=== PATIENT | male | born 1985 | race Caucasian/White ===

== ENCOUNTER 2021-08-06 05:38 | Emergency (ER) | payer OTHER, SELFPAY ==
--- NOTE | 2021-08-06 05:41 | ECG_ITS ---
Measurements Intervals [place] Rate: 112 P: 55 IN: 124 QRS: 54 QRSD: 87 T: 5 QT: 317 QTc: 433 Interpretive Statements SINUS TACHYCARDIA NONSPECIFIC T-WAVE ABNORMALITY- INFERIOR LEADS ABNORMAL ECG Electronically Signed On 08-06-2021 6:37:55 CHEMICAL EDUCATOR by Checo Abraham D.O.
--- NOTE | 2021-08-06 05:47 | PC.NURSE ---
sitter at side, suction & cords not removed, until patient stable from withdrawls
[2021-08-06 05:56] VITALS: BP 140/88; PULSE 100; RESP 20; TEMP 37; O2SAT 95
[2021-08-06] MEDS: SODIUM CHLORIDE 0.9% IV 1,000 ML 999 ML IV CONT (06:07)
[2021-08-06 06:08] LABS: Basophils Absolute Auto 0.02 K/mm3 (0.00-0.10); Basophils Percent Auto 0.2 % (0.0-1.0); Eosinophils Absolute Auto 0.15 K/mm3 (0.02-0.50); Eosinophils Percent Auto 1.4 % (1.0-6.0); Hematocrit 51.7 % (40.0-54.0); Hemoglobin 17.6 g/dL (14.0-18.0); Immature Granulocyte Absolute 0.04 K/mm3 (0.00-0.00); Immature Granulocyte Percent A 0.4 % (0.0-0.0); Lymphocytes Absolute Auto 3.82 K/mm3 (1.10-4.50); Lymphocytes Percent Auto 36.5 % (18.0-42.0); Mean Corpuscular Hemoglobin 30.8 pg (27.0-31.0); Mean Corpuscular Volume 90.4 fL (78.0-102.0); Mean Platelet Volume 9.8 fl (8.7-11.0); Monocytes Percent Auto 5.7 % (2.0-11.0); Neutrophils Absolute Auto 5.9 K/mm3 (1.7-7.2); Neutrophils Percent Auto 55.8 % (50.0-70.0); Platelet Count Result 283 K/mm3 (150-420); Red Blood Count 5.72 M/mm3 (4.70-6.10); Red Cell Distribution Width 12.5 % (11.6-14.4); White Blood Count 10.5 K/mm3 (4.8-10.8)
[2021-08-06 06:20] LABS: Amphetamine Screen Urine Negative (Negative); Barbiturate Screen Urine Negative (Negative); Benzodiazepines Screen Urine Negative (Negative); Cannabinoid Screen Urine Negative (Negative); Cocaine Screen Urine Negative (Negative); Methadone Screen Urine Negative (Negative); Opiate Screen Urine Negative (Negative); Phencyclidine Screen Urine Negative (Negative)
[2021-08-06 06:27] LABS: Alanine Aminotransferase 40 U/L (16-63); Albumin Level 4.6 g/dL (3.4-5.0); Alkaline Phosphatase 82 U/L (46-116); Anion Gap 12 mmol/L (8-16); Aspartate Amino Transferase 16 U/L (15-37); Bilirubin,Total 0.1 mg/dL (0.00-1.00); Blood Urea Nitrogen 11 mg/dL (7-18); Calcium 8.8 mg/dL (8.5-10.1); Carbon Dioxide 25 mmol/L (21-32); Chloride 109 mmol/L (98-108); Estimated CRCL calculation 95 ml/min; Estimated Glomerular Filt Rate > 60; Glucose 103 mg/dL (70-99); Osmolality Calculated 301 mOsm/kg (285-295); Sodium 146 mmol/L (136-145); Total Protein 8.2 g/dL (6.4-8.2)
[2021-08-06 06:29] LABS: Acetaminophen < 2 ug/mL (10-30); Salicylate 4.2 mg/dL (2.8-20.0)
[2021-08-06 06:30] LABS: Ethanol > 300 mg/dL (0-6)
[2021-08-06 06:41] LABS: SARS-CoV-2 RNA PCR Negative (Negative)
--- NOTE | 2021-08-06 07:09 | ED.GENADULT ---
HPI - General Adult General Chief complaint: Unspecified <Brayan Jesus MD - Last Filed: 08/08/21 08:40> Stated complaint: Suicidal <Brayan Jesus MD - Last Filed: 08/08/21 08:40> Time Seen by Provider: 08/06/21 05:40 <Brayan Jesus MD - Last Filed: 08/08/21 08:40> Source: patient, EMS and RN notes reviewed <Brayan Jesus MD - Last Filed: 08/08/21 08:40> Mode of arrival: EMS <Brayan Jesus MD - Last Filed: 08/08/21 08:40> Limitations: no limitations <Brayan Jesus MD - Last Filed: 08/08/21 08:40> History of Present Illness complaint: pt was drinking etoh and slashed his wrist superficially because he was mian <Brayan Jesus MD - Last Filed: 08/08/21 08:40> Onset (ago): hour(s) (1) <Brayan Jesus MD - Last Filed: 08/08/21 08:40> Location: upper extremity <Brayan Jesus MD - Last Filed: 08/08/21 08:40> Radiation: non-radiation <Brayan Jesus MD - Last Filed: 08/08/21 08:40> Severity: mild <Brayan Jesus MD - Last Filed: 08/08/21 08:40> Severity scale (1-10): 2 <Brayan Jesus MD - Last Filed: 08/08/21 08:40> Quality: dull <Brayan Jesus MD - Last Filed: 08/08/21 08:40> Pain Consistency: other (pt was pain-free in the ED.) <Brayan Jesus MD - Last Filed: 08/08/21 08:40> Relieving factors: none <Brayan Jesus MD - Last Filed: 08/08/21 08:40> Exacerbating factors: none <Brayan Jesus MD - Last Filed: 08/08/21 08:40> Associated symptoms: other (etoh intoxication) <Brayan Jesus MD - Last Filed: 08/08/21 08:40> Treatments prior to arrival: other (see EMS notes.) <Brayan Jesus MD - Last Filed: 08/08/21 08:40> Related Data Home medications: Home Medications Medication Instructions Recorded Confirmed No Home Medications 08/06/21 08/06/21 <Brayan Jesus MD - Last Filed: 08/08/21 08:40> Allergies/adverse reactions: Allergies Allergy/AdvReac Type Severity Reaction Status Date / Time No Known Allergies Allergy Verified 08/06/21 05:59 <Brayan Jesus MD - Last Filed: 08/08/21 08:40> Review of Systems Review of Systems: All systems reviewed & are unremarkable except as noted in HPI and below <Brayan Jesus MD - Last Filed: 08/08/21 08:40> Psychiatric: Psychiatric: Reports suicidal ideation <Brayan Jesus MD - Last Filed: 08/08/21 08:40> PMFSH Past Medical History Medical History: Medical History Elevated ETOH level Suicidal ideation <Brayan Jesus MD - Last Filed: 08/08/21 08:40> Exam Const: General: cooperative, no acute distress, alert and awake <Brayan Jesus MD - Last Filed: 08/08/21 08:40> Nutritional Appearance: well nourished <Brayan Jesus MD - Last Filed: 08/08/21 08:40> Orientation/consciousness: patient oriented x3 <Brayan Jesus MD - Last Filed: 08/08/21 08:40> Limitations: no limitations <Brayan Jesus MD - Last Filed: 08/08/21 08:40> HENMT: Head: normal to inspection, normocephalic and atraumatic <Brayan Jesus MD - Last Filed: 08/08/21 08:40> Ears: hearing grossly normal bilaterally, external ears normal and TM's normal bilaterally <Brayan Jesus MD - Last Filed: 08/08/21 08:40> General nose exam: Normal external nose present and Normal nares present <Brayan Jesus MD - Last Filed: 08/08/21 08:40> Face and sinus: normal facial exam <Brayan Jesus MD - Last Filed: 08/08/21 08:40> Mouth: Yes Normal oral and palatal mucosa present, Yes lip normal, Yes oropharynx normal and Yes moist mucous membranes <Brayan Jesus MD - Last Filed: 08/08/21 08:40> Throat: posterior oropharynx normal <Brayan Jesus MD - Last Filed: 08/08/21 08:40> Eyes: General: appearance normal, both eyes and all related structures <Brayan Jesus MD - Last Filed: 0
--- NOTE | 2021-08-06 10:57 | PC.NURSE ---
0700 pt sleeping, attempted to wake up. pt states, just leave me alone. 1100 pt moving around, easy to arouse. explained need for iv fluids to infuse and positioning of right arm. explained alcohol level . pt states sounds about right since i was apparently drinking.
--- NOTE | 2021-08-06 13:06 | PC.NURSE ---
pt sleeping , continues with continuous observation from RN or DR from desk. pt able to reposition self in bed. side rails up for safety .
--- NOTE | 2021-08-06 14:20 | PC.NURSE ---
1330 pt awake and watching tv. 1400 offered pt food tray and drink, declined at this time. im not hungry . i just want to go . explained policy for crisis assessment. pt states i can call my own counselor . explained hospital policy. pt voiced understanding. mother states she dropped off phone for pt. phone not in personal belongings bag in med room. calling staff that was working with pt last night. awaiting return call .
--- NOTE | 2021-08-06 14:49 | PC.NURSE ---
phone located. given to pt to notify work. offered food tray, pt declined.
[2021-08-06 15:06] VITALS: BP 120/75; PULSE 87; RESP 20; TEMP 36.9; O2SAT 98
--- NOTE | 2021-08-06 15:10 | PC.NURSE ---
phone placed in boot with other belongings.
--- NOTE | 2021-08-06 17:37 | PC.NURSE ---
pt ambulated to bathroom to void. offered food tray , pt declined. did ask for glass of water. ice water given. pt denies wanting to harm self or others.
--- NOTE | 2021-08-06 17:39 | PC.NURSE ---
pt given personal underwear as requested to ambulate down the hallway.
--- NOTE | 2021-08-06 19:10 | PC.NURSE ---
Care resumed, pt watching TV, offered pt food tray but he declined, POC discussed c pt. Pt cooperative c care at this time VSS.
[2021-08-06 19:11] VITALS: BP 126/76; PULSE 100; RESP 18; TEMP 36.6; O2SAT 100
[2021-08-06 19:42] LABS: Ethanol 68 mg/dL (0-6)
[2021-08-06 22:38] VITALS: BP 129/84; PULSE 87; RESP 18; TEMP 36.6; O2SAT 99
== END 2021-08-06 22:39 | disposition home or self-care (01) ==
PROVIDERS: Emergency Medicine; Emergency Provider Emergency Medicine; PCP Family Medicine
DX: R45.851 Suicidal ideations (principal); Y90.8 Blood alcohol level of 240 mg/100 ml or more; Z20.822 Contact with and (suspected) exposure to COVID-19
CPT/HCPCS: 36415; 80053; 80307; 85025; 93005; 96360; 96361; 99284; C9803; J7030; U0003; U0005

== ENCOUNTER 2023-05-17 08:56 | Emergency (ER) | payer OTHER, SELFPAY ==
--- NOTE | ~2023-05-17 | XR_ITS ---
EXAMINATION: XR heel LT min 2V DATE: 05/17/2023 09:15 INDICATION: Left heel pain. TECHNIQUE: 2 views of left calcaneus were obtained. COMPARISON: None. FINDINGS: Bone alignment is normal. No fracture. Joint spaces are normal. IMPRESSION: 1. Normal left calcaneus. Reviewed, dictated and finalized at location A. IMPRESSION: 1. Normal left calcaneus.
--- NOTE | ~2023-05-17 | XR_ITS ---
EXAMINATION: XR foot LT 2V DATE: 05/17/2023 09:15 INDICATION: Left heel pain. TECHNIQUE: 2 views of left foot were obtained. COMPARISON: None. FINDINGS: Bone alignment is normal. No fracture. There is heterotopic ossification distal to lateral malleolus. There is mild osteoarthritis of first metatarsophalangeal joint. IMPRESSION: 1. Mild osteoarthritis of first metatarsophalangeal joint. Reviewed, dictated and finalized at location A.
[2023-05-17 08:59] VITALS: BP 137/95; PULSE 82; RESP 20; TEMP 36.7; O2SAT 99
--- NOTE | 2023-05-17 09:00 | ED.LOWEXIN ---
HPI - Extremity Injury (Lower) General Chief Complaint: Extremity Injury, Lower Stated Complaint: R heal injury Time Seen by Provider: 05/17/23 08:58 Source: patient Mode of arrival: ambulatory History of Present Illness HPI Narrative: patient is a 37 year male significant past medical history that presents today with a left heel injury. He states last night at work he injured his left heel using a roni hammer. His left heel swollen and erythematous. States hurts to walk on it. He came in using a walker. complaint: foot injury Onset (ago): hour(s) Injury: Left: foot Type of Injury: blunt Place: work Severity: moderate Severity scale (1-10): 6 Relieving factors: NSAID and cold therapy Exacerbating factors: weight bearing and movement Context: direct blow Related Data Home Medications Medication Instructions Recorded Confirmed No Home Medications 08/06/21 05/17/23 Allergies Allergy/AdvReac Type Severity Reaction Status Date / Time No Known Allergies Allergy Verified 08/06/21 05:59 Review of Systems Review of Systems: All systems reviewed & are unremarkable except as noted in HPI and below Constitutional: Constitutional: Reports as per HPI Eyes: Eyes: Reports no additional eye complaints ENT: Reports system reviewed and no additional complaints, except as documented Cardiovascular: Cardiovascular: Reports no additional cardiovascular complaints Respiratory: Respiratory: Reports no additional respiratory complaints Gastrointestinal: Gastrointestinal: Reports no additional gastrointestinal complaints Musculoskeletal: Musculoskeletal: Reports as per HPI, Reports arthralgias and Reports joint swelling (left heel ) Neurologic: Reports system reviewed and no additional complaints, except as documented Psychiatric: Psychiatric: Reports no additional psychiatric complaints Endocrine: Endocrine: Reports no additional endocrine complaints Hematologic/Lymphatic: Hematologic/Lymphatic: Reports no additional hematologic/lymphatic complaints [facility] Past Medical History Medical History Elevated ETOH level Suicidal ideation Exam Const: General: cooperative, healthy appearing and comfortable HENMT: Head: normal to inspection Ears: hearing grossly normal bilaterally Eyes: General: appearance normal, both eyes and all related structures Neck: Neck: normal visual inspection Chest: Chest palpation & inspection: normal inspection of the chest Resp: Effort & Inspection: normal respiratory effort and able to speak in complete sentences Cardio: Jugular venous distension: no JVD Palpation: normal PMI Rate: regular rate Rhythm: regular rhythm Heart sounds: S1 normal heart sound present and S2 normal heart sound present GI: Inspection: normal to inspection Percussion: Yes normal to percussion, Yes dullness to percussion, Yes Fluid wave present, Yes tympanic to percussion and Yes other Back/Spine/Pelvis: Back: no CVA tenderness Thoracic/Lumbar Spine: thoracic and lumbar spine normal to inspection Pelvis: no pain with anterior-posterior compression Skin: General skin exam: normal color Lesions: no lesions Neuro: General: oriented to person Cranial nerves: Yes CN's II-XII intact bilaterally Extrem: General: normal to inspection Left lower extremity: edema and ankle Details: tenderness, swelling and pitting edema Psych: Appearance: grossly normal Mental Status: mental status grossly normal Course Vital Signs Vital signs: Vital Signs Temperature 98.1 F 05/17/23 08:59 Pulse Rate 82 05/17/23 08:59 Respiratory Rate 20 05/17/23 08:59 Blood Pressure 137/95 H 05/17/23 08:59 Pulse Oximetry 99 05/17/23 08:59 Oxygen Delivery Room Air 05/17/23 08:59 Temperature 98.1 F 05/17/23 08:59 Pulse Rate 82 05/17/23 08:59 Respiratory Rate 20 05/17/23 08:59 Blood Pressure 137/95 H 05/17/23 08:59 Pulse Oximetry 99 1
[2023-05-17] MEDS: KETOROLAC (*BKC) 60 MG/2 ML VIAL IM (09:11)
[2023-05-17 09:46] VITALS: BP 138/90; PULSE 84; RESP 20; O2SAT 99
== END 2023-05-17 09:45 | disposition home or self-care (01) ==
PROVIDERS: Emergency Provider Family Medicine
DX: S93.402A Sprain of unspecified ligament of left ankle, initial encounter (principal); S96.912A Strain of unspecified muscle and tendon at ankle and foot level, left foot, initial encounter; W22.8XXA Striking against or struck by other objects, initial encounter
CPT/HCPCS: 73620; 73650; 96372; 99283; J1885